=== PATIENT | female | born 1940 | race Caucasian/White ===

== ENCOUNTER → 2017-05-05 | Day surgery (SDC) | payer MEDICARE ==
[2017-05-04 10:43] LABS: BASOPHILS # (AUTO) 0.1 (0.0-0.1); BASOPHILS % 0.9 % (0.0-1.0); EOSINOPHILS # (AUTO) 0.3 (0.0-0.4); EOSINOPHILS % 4.7 % (0.0-6.0); HEMATOCRIT 37.3 % (34.2-44.1); HEMOGLOBIN 11.9 g/dL (12.0-16.0); LYMPHOCYTES # (AUTO) 1.5 (1.0-3.2); LYMPHOCYTES % 27.8 % (18.0-39.1); MEAN CORPUSCULAR HEMOGLOBIN 29.5 pg (28-32); MEAN CORPUSCULAR HGB CONC 31.9 g/dL (31-35); MEAN CORPUSCULAR VOLUME 92.6 fL (81-99); MONOCYTES # (AUTO) 0.5 (0.2-0.8); MONOCYTES % 10.1 % (4.4-11.3); NEUTROPHILS % 56.3 % (38.7-80.0); PLATELET COUNT 236 x10e3/uL (140-360); RED BLOOD COUNT 4.03 x10e6/uL (3.6-5.1); RED CELL DISTRIBUTION WIDTH 12.6 % (11.7-14.4)
--- NOTE | 2017-05-04 11:07 | Diagnostic Imaging Report ---
PROCEDURE: Frontal and lateral views of the chest. COMPARISON: None. INDICATIONS: PREOP - HEART CATH FINDINGS: Lines/tubes: None. Lungs: The lungs are well inflated and clear. There is no evidence of pneumonia or pulmonary edema. Pleura: There is no pleural effusion or pneumothorax. Heart and mediastinum: The heart and the mediastinum are normal. Bones: No acute bony abnormality. IMPRESSION: 1. No acute cardiopulmonary disease. Dictated by: Tim Coleman M.D. on 05/04/2017 at 11:17 Electronically approved by: Tim Coleman M.D. on 05/04/2017 at 11:17
[2017-05-04 11:13] LABS: ANION GAP 14.7 mmol/L (8-16); BLOOD UREA NITROGEN 23 mg/dL (7-26); BUN/CREATININE RATIO 26 (6-25); CALCIUM 9.2 mg/dL (8.4-10.2); CARBON DIOXIDE 26 mmol/L (22-29); CHLORIDE 107 mmol/L (98-107); CREATININE, SERUM 0.87 mg/dL (0.57-1.11); EST GLOMERULAR FILTRATION RATE > 60 ML/MIN (60-); GLUCOSE 100 mg/dL (74-118); MAGNESIUM 2.5 MG/DL (1.3-2.1); POTASSIUM 4.7 mmol/L (3.5-5.1); SODIUM 143 mmol/L (136-145)
[~2017-05-05] VITALS: Ht 165.1 cm; Wt 55.3 kg
[~2017-05-05] MED LIST: ASPIRIN81 MG PO; FENTANYL CITRATE/PF 100MCG/2 ML INJ ONE; HEPARIN SOD (PORCINE) 1000 UNIT/ML 30ML ONE; HEPARIN SOD/SOD CHLORIDE 2,000 ML ONE; IOPAMIDOL 370 MG/ML 200 ML INFUS..BTL INJ ONE; LIDOCAINE HCL 2% LOCAL 20 ML VIAL ONE; METOPROLOL SUCC25 MG PO; MIDAZOLAM HCL 2 MG/2 ML VIAL ONE; SODIUM CHLORIDE 0.9% 1000ML 1,000 ML ONE
--- OUTSIDE RECORDS SUMMARY | 2017-05-05 10:49 | XMS REPORT ---
[facility] Unknown Phone Unavailable Care Team Providers Care Card Stripper Name Role Phone BERTO WHEAT Unavailable Unavailable Problems This patient has no known problems. Allergies, Adverse Reactions, Alerts This patient has no known allergies or adverse reactions. Medications This patient has no known medications. Results Test Description Test Time Test Comments Text Results Atomic Results Result Comments CHEST 2 VIEWS [place] [address] Patient Name: REYES RIVERA MR #: [id number] : 1940 Age/Sex: 76/F Req # : [id number] Adm Physician: Ordered by: BERTO WHEAT MD Report #: [id number] Location: [facility] Room/Bed: Procedure: [id number] DX/CHEST 2 VIEWS Exam Date: 05/04/17 Exam Time : 1040 REPORT STATUS: Signed PROCEDURE: Frontal and lateral views of the chest. COMPARISON: None. INDICATIONS: PREOP - HEART CATH FINDINGS: Lines/tubes: None. Lungs: The lungs are well inflated and clear. There is no evidence of pneumonia or pulmonary edema. Pleura : There is no pleural effusion or pneumothorax. Heart and mediastinum: The heart and the mediastinum are normal. Bones: No acute bony abnormality. IMPRESSION: 1. No acute cardiopulmonary disease. Dictated by: Tim Coleman M.D. on 05/04/2017 at 11:17 Electronically approved by: Tim Coleman M.D. on 05/04/2017 at 11:17 Dictated By: TIM COLEMAN MD [id number] Transcribed By: PRIMITIVO on 05/04/17 1117 COPY TO: BERTO WHEAT MD
[2017-05-05 11:21] VITALS: BP 179/72
[2017-05-06 08:41] VITALS: BP 148/71
--- NOTE | 2017-05-07 18:04 | Operative Report ---
DATE OF PROCEDURE: May 05, 2017 DIAGNOSES 1. Angina pectoris with positive treadmill stress test. 2. Cardiac arrhythmia with paroxysmal atrial fibrillation. 3. Hypertension. 4. Transient ischemic attacks with loud carotid bruits and abnormal carotid ultrasound. PROCEDURES 1. Cardiac catheterization including selective coronary angiogram and left ventricular angiogram. 2. Aortic arch study. 3. Abdominal aortogram. 4. Closure of left femoral artery with Angio-Seal, model Evolution. INDICATIONS: This 76-year-old patient was admitted to the hospital with recent onset of hypertension and angina pectoris. The patient was evaluated at the [facility] and had a positive treadmill exercise test. She also had a Holter monitor which showed cardiac arrhythmia with paroxysmal atrial fibrillation and echocardiogram which showed normal left ventricular function. The patient was started on medical therapy. However, she continues with daily angina pectoris despite control of hypertension and cardiac arrhythmia. She is now admitted for diagnostic evaluation. DESCRIPTION OF PROCEDURE: After the usual prepping and draping, the left inguinal area was infiltrated with local lidocaine. The left femoral artery was then punctured percutaneously, and a 5-[place] arterial sheath was placed in the left femoral artery under modified Seldinger technique. Selective coronary angiography was performed with modified 5-[place] Allyn-type catheters. A 5-[place] angled pigtail catheter was utilized for recording of hemodynamics, left ventricular angiogram, aortic arch study and abdominal aortogram. FINDINGS OF CARDIAC CATHETERIZATION: The left ventricular pressure was 135 mmHg. The aortic pressure was 127/46 with a mean of 82 mmHg. The left ventricular end-diastolic pressure was 10 mmHg, peaking at 18 mmHg. The left main coronary artery was normal. The left anterior descending branch showed about a 20% segmental narrowing in the mid portion. The branches of the left coronary artery were quite tortuous with only minimal plaque formation, except for the 20% narrowing in the mid LAD. The right coronary artery was normal and dominant and also showed some minimal plaque formation. The left ventricular angiogram showed normal left ventricular ejection fraction of 65%. There was some mild dilation of the mitral annulus and VIF of mitral regurgitation. The aortic arch study performed in the left anterior oblique position showed normal transverse aortic arch. The left common carotid artery was taking off from the very proximal portion of the right innominate artery. However, the extracranial branches were all within normal limits, with the right vertebral artery being more the dominant vessel. The carotid artery as visualized showed only some mild plaque formation and tortuosity. However, there was no significant stenosis noted. The abdominal aortogram showed normal renal arteries. Also, the celiac and the branches and the superior mesenteric artery as visualized were normal. There was some mild plaque formation in the infrarenal abdominal aorta. A left groin angiogram was performed prior to closure of the left femoral artery after removing the 5-[place] pigtail catheter. Adequate hemostasis was achieved. Dressing was applied. Then the patient returned to the observation area in stable condition. There were no complications. Procedure was well tolerated, and there was no blood loss. FINAL IMPRESSION 1. Minimal to mild coronary artery disease. 2. Normal left ventricular function. 3. Nonobstructive plaque formation in both internal carotid arteries in the extracranial distribution. 4. Mild arteriosclerotic plaques in the infrarenal abdominal aorta with normal branches. RECOMMENDATION: Continue medical therapy and close observation as an outpatient. This was discussed in detail with the patient and family, and she will be seen within 2 weeks after hospital discharge for followup. Job#: [id number]
== END | disposition home or self-care (01) ==
LOC: CATH LAB 10:46
PROVIDERS: ATTEND Internal Medicine Cardiovascular Disease
DX: R07.9 Chest pain, unspecified (principal); R94.39 Abnormal result of other cardiovascular function study; I10 Essential (primary) hypertension; R09.89 Other specified symptoms and signs involving the circulatory and respiratory systems; I48.0 Paroxysmal atrial fibrillation; I25.119 Atherosclerotic heart disease of native coronary artery with unspecified angina pectoris; I65.23 Occlusion and stenosis of bilateral carotid arteries; I77.1 Stricture of artery; I34.0 Nonrheumatic mitral (valve) insufficiency; Z86.73 Personal history of transient ischemic attack (TIA), and cerebral infarction without residual deficits; Z01.812 Encounter for preprocedural laboratory examination; Z01.818 Encounter for other preprocedural examination; K58.9 Irritable bowel syndrome, unspecified
CPT/HCPCS: 36221; 36415; 71046; 75625; 77002; 80048; 83735; 85025; 93458; J1644; J2001; J2250; J7030; Q9967; 36140; 36200; 93452

== ENCOUNTER → 2018-01-27 | Outpatient (CLI) | payer MEDICARE ==
[~2018-01-27] MED LIST changes: -FENTANYL CITRATE/PF 100MCG/2 ML INJ ONE; -HEPARIN SOD (PORCINE) 1000 UNIT/ML 30ML ONE; -HEPARIN SOD/SOD CHLORIDE 2,000 ML ONE; -LIDOCAINE HCL 2% LOCAL 20 ML VIAL ONE; -MIDAZOLAM HCL 2 MG/2 ML VIAL ONE; +SODIUM CHLORIDE 0.9% 100 ML 100 ML ONE; -SODIUM CHLORIDE 0.9% 1000ML 1,000 ML ONE
[2018-01-27 12:03] LABS: BLOOD UREA NITROGEN 21 mg/dL (7-26); BUN/CREATININE RATIO 24 (6-25); CREATININE, SERUM 0.87 mg/dL (0.57-1.11); EST GLOMERULAR FILTRATION RATE > 60 ML/MIN (60-)
--- NOTE | 2018-01-27 14:31 | Diagnostic Imaging Report ---
EXAMINATION: CT angiogram of the neck CLINICAL HISTORY: Transient ischemic attack, atrial fibrillation, abnormal carotid Doppler ultrasound on the left carotid artery. History of breast cancer COMPARISON STUDIES: None TECHNIQUE: Axial images were obtained from the thoracic inlet. Coronal and sagittal images reconstructed from the axial data. For optimization of of anatomic evaluation, multi-planar reconstructions, maximum intensity projections, and advanced 3D off-line post-processing was obtained and performed on a dedicated stand-alone workstation under the direct supervision of the interpreting physician. Intravenous contrast: 100 mL of Isovue-370. Image quality: Motion artifact Limited evaluation of the C1-C2 level. Dose modulation, iterative reconstruction, and/or weight based adjustment of the mA/kV was utilized to reduce the radiation dose to as low as reasonably achievable. FINDINGS: If present, stenosis of the carotid bulbs is measured based on NASCET criteria i.e area of maximum stenosis compared to the cervical ICA distal to the bulb. Aortic arch and major vessels: Patent. No abnormalities. Common carotid arteries: Right: Patent. No abnormalities. Left :Patent. No abnormalities. Carotid bulbs: Right: Patent. No abnormalities. Left :Patent. No abnormalities. Internal carotid arteries: Left: Mild irregularity of the left cervical internal carotid artery extending from the level of C1 to C3, with areas of narrowing and dilatation (string of beads) without associated significant stenoses or dissection. Right: Possible similar focal area of string of beads distal to the right carotid bulb, motion artifact involving the evaluation at this level. Vertebral arteries: Patent. No abnormalities. IMPRESSION: The findings are consistent with left cervical ICA angiopathy, likely fibromuscular dysplasia without evidence of dissection or significant stenosis at that time as detailed above. Signed by: Dr. Isabelle Muro M.D. on 01/27/2018 2:28 PM
--- NOTE | 2018-02-01 10:33 | Diagnostic Imaging Report ---
PROCEDURE:US GUIDANCE FOR VASCULAR ACCESS COMPARISON:None. INDICATIONS:Not provided. FINDINGS:Ultrasound evaluation of potential access sites was performed. After successfully identifying a patent vessel, US guidance was used to puncture the vein. A permanent recording was created for the patient record. CONCLUSION: Successful IV access by ultrasound guidance. Dictated by: BREA MAGANA M.D. on 02/01/2018 at 10:42 Electronically approved by: BREA MAGANA M.D. on 02/01/2018 at 10:42
== END ==
LOC: CT 11:00
PROVIDERS: ATTEND Internal Medicine Cardiovascular Disease
DX: G45.9 Transient cerebral ischemic attack, unspecified (principal); I65.8 Occlusion and stenosis of other precerebral arteries
CPT/HCPCS: 36415; 70498; 76937; 82565; 84520; Q9967

== ENCOUNTER → 2018-07-26 | Outpatient (CLI) | payer MEDICARE ==
[~2018-07-26] MED LIST changes: -SODIUM CHLORIDE 0.9% 100 ML 100 ML ONE; +SODIUM CHLORIDE 0.9% 500ML 500 ML ONE; +SODIUM CHLORIDE 0.9% 50ML 50 ML ONE
[2018-07-26 13:57] LABS: CREATININE, SERUM 1.12 mg/dL (0.57-1.11)
--- NOTE | 2018-07-27 09:00 | Diagnostic Imaging Report ---
CTA NECK HISTORY: Transient cerebral ischemic attack COMPARISON: CTA of the neck 01/27/2018 TECHNIQUE: CTA of the neck was performed with intravenous iodine based contrast. Coronal, sagittal, 3-D, and oblique maximum intensity projection reformations were created. One or more of the following dose reduction techniques were used: Automated exposure control, adjustment of the mA and/or kV according to patient size, and/or utilization of iterative reconstruction technique. 100 mL of Isovue-300 were administered. Straightened artifacts obscure some details. DISCUSSION: If present, any cervical carotid stenosis will be measured as a percentage relative to the nondalton artery distal to the stenosis (NASCET). There are mild calcifications in the aortic arch. Right Carotid: There is questionable subtle beading of the proximal right cervical internal carotid artery. Otherwise, patent and without abnormality. Left Carotid: Beading of the mid left cervical internal carotid artery is stable. Otherwise, patent and without abnormality. Right vertebral artery: There is mild beading of the right vertebral artery, mainly in the V1 segment. Otherwise, patent and without abnormalities. Left vertebral artery: There is mild beading of the left vertebral artery, mainly in the V1 segment. Otherwise, patent and without abnormalities. The intracranial arterial vasculature is partially visualized. There is mild dolichoectasia of the intracranial internal carotid arteries. Additional findings: Both ocular lenses are thinned. There is mild scarring in the lung apices. There are prominent degenerative changes throughout the spine. Conrath and mandibular mónica are present. IMPRESSION: 1. Stable, beading of the mid left cervical internal carotid artery suggests fibromuscular dysplasia. There is mild involvement of the bilateral cervical vertebral arteries, mainly in the V1 segments. There is questionable mild involvement of the proximal right cervical internal carotid artery. 2. No other cervical CTA abnormalities. No evidence for dissection or significant stenosis. Signed by: Dr. Raffaele Bucio M.D. on 07/27/2018 8:56 AM
== END ==
LOC: CT 13:14
PROVIDERS: ATTEND Internal Medicine Cardiovascular Disease
DX: G45.9 Transient cerebral ischemic attack, unspecified (principal); I65.8 Occlusion and stenosis of other precerebral arteries
CPT/HCPCS: 36415; 70498; 82565; 84520; 96360; J7040; Q9967

== ENCOUNTER → 2020-09-03 | Outpatient (CLI) | payer MEDICARE ==
[~2020-09-03] MED LIST changes: -IOPAMIDOL 370 MG/ML 200 ML INFUS..BTL INJ ONE; -SODIUM CHLORIDE 0.9% 500ML 500 ML ONE; -SODIUM CHLORIDE 0.9% 50ML 50 ML ONE
== END ==
LOC: CARD 11:32
PROVIDERS: ATTEND Internal Medicine Cardiovascular Disease
DX: I65.8 Occlusion and stenosis of other precerebral arteries (principal)
CPT/HCPCS: 93880

== ENCOUNTER → 2020-09-30 | Outpatient (CLI) | payer MEDICARE | LOC: MRI 12:54 | PROVIDERS: ATTEND Internal Medicine Cardiovascular Disease | DX: G45.9 Transient cerebral ischemic attack, unspecified (principal); M54.12 Radiculopathy, cervical region | CPT/HCPCS: 70551; 72141 ==

== ENCOUNTER → 2021-08-26 | Outpatient (CLI) | payer MEDICARE ==
[~2021-08-26] MED LIST changes: +GADOBENATE DIMEGLUMINE 1 ML IV ONE
[2021-08-26 14:04] LABS: CREATININE, SERUM 0.85 mg/dL (0.57-1.11)
== END ==
LOC: MRI 13:15
PROVIDERS: ATTEND Internal Medicine Cardiovascular Disease
DX: G45.9 Transient cerebral ischemic attack, unspecified (principal)
CPT/HCPCS: 36415; 70549; 82565; 84520; A9577